=== PATIENT | female | born 1985 | race African-American/Black ===

== ENCOUNTER → 2018-05-22 | Outpatient (CLI) | payer OTHER ==
[~2018-05-22] MED LIST: PRENATAL TABLE1 EAC3 PO
[2018-05-22 12:15] VITALS: BP 140/87
== END | disposition home or self-care (01) ==
LOC: IVINF 11:00
DX: Z34.80 Encounter for supervision of other normal pregnancy, unspecified trimester (principal); Z31.82 Encounter for Rh incompatibility status; Z3A.00 Weeks of gestation of pregnancy not specified; Z67.91 Unspecified blood type, Rh negative
CPT/HCPCS: J2790